=== PATIENT | male | born 1955 | race African-American/Black ===

== ENCOUNTER 2018-12-29 13:45 | Emergency (ER) | payer OTHER ==
[~2018-12-29] VITALS: Ht 180.3 cm; Wt 117.9 kg
[2018-12-29 14:42] LABS: CALCIUM 9.6 mg/dL (8.5-10.1); CREATININE 1.6 mg/dL (0.7-1.3); POTASSIUM 3.9 mmol/L (3.5-5.1)
[2018-12-29 14:45] LABS: URIC ACID* 5.9 mg/dL (2.6-7.2)
[2018-12-29] MEDS ORDERED: NORCO 5-325 TA1 EAC1 PO (14:50)
[2018-12-29] MEDS ORDERED: INDOMETHACIN 2525 MG PO (14:50)
[2018-12-29] MEDS ORDERED: COLCHICINE0.6 MG PO (14:50)
[2018-12-29 15:00] VITALS: BP 174/109
== END 2018-12-29 15:00 | disposition home or self-care (01) ==
LOC: ER 13:45
PROVIDERS: Physician Assistant
DX: M10.072 Idiopathic gout, left ankle and foot (principal); I10 Essential (primary) hypertension; E78.5 Hyperlipidemia, unspecified

== ENCOUNTER 2020-11-27 13:15 | Emergency (ER) | payer OTHER ==
[~2020-11-27] VITALS: Ht 180.3 cm; Wt 127.0 kg
[~2020-11-27 13:15] MED LIST: COLCHICINE0.6 MG PO; INDOMETHACIN 2525 MG PO; NORCO 5-325 TA1 EAC1 PO
[2020-11-27 13:31] VITALS: BP 156/53
[2020-11-27] MEDS ORDERED: LIPITOR 40 MG T40 M1 PO (13:38)
[2020-11-27 14:06] LABS: URINE BILIRUBIN NEGATIVE (Negative); URINE BLOOD TRACE (Negative); URINE CLARITY CLEAR; URINE COLOR YELLOW; URINE GLUCOSE-RANDOM* NEGATIVE (Negative); URINE KETONES NEGATIVE (Negative); URINE LEUKOCYTES-REFLEX NEGATIVE (Negative); URINE NITRITE-REFLEX NEGATIVE (Negative); URINE PROTEIN (DIPSTICK) NEGATIVE (Negative); URINE UROBILINOGEN 0.2 E.U./dl (0.2-1.0)
[2020-11-27 14:18] LABS: ABSOLUTE NEUTROPHILS 5.6 thou/uL (1.4-8.2); BASOPHILS 0.6 % (0.0-2.0); EOSINOPHILS 2.2 % (0.0-3.0); HEMOGLOBIN 12.7 gm/dL (14.0-18.0); MCH 28.8 pg (26.0-34.0); MCHC 32.6 g/dL (28.0-37.0); MCV 88.4 fL (80.0-100.0); PLATELET COUNT 229 thou/uL (150-400); POLYS 78.2 % (36.0-66.0); RBC 4.41 mil/uL (4.50-6.00); RDW 14.7 % (10.5-14.5); WBC 7.2 thou/uL (4.0-11.0)
[2020-11-27 14:26] LABS: CALCIUM 9.6 mg/dL (8.5-10.1); CREATININE 1.7 mg/dL (0.7-1.3); POTASSIUM 3.8 mmol/L (3.5-5.1)
[2020-11-27 14:32] LABS: ALBUMIN 3.7 g/dL (3.4-5.0); TOTAL BILIRUBIN 1.1 mg/dL (0.2-1.0); TOTAL PROTEIN 7.3 g/dL (6.4-8.2)
[2020-11-27] MEDS ORDERED: HYDROCODON-ACE1 EAC7 PO (16:03)
[2020-11-27 16:09] VITALS: BP 121/82
== END 2020-11-27 16:10 | disposition home or self-care (01) ==
LOC: ER 13:15 → EROBS 15:41 → ER 15:41
PROVIDERS: Emergency Medicine
DX: R10.30 Lower abdominal pain, unspecified (principal); R07.89 Other chest pain; M54.5 Low back pain; M25.562 Pain in left knee; M79.621 Pain in right upper arm; I10 Essential (primary) hypertension; E78.5 Hyperlipidemia, unspecified; Z96.652 Presence of left artificial knee joint; Z79.899 Other long term (current) drug therapy; V89.2XXA Person injured in unspecified motor-vehicle accident, traffic, initial encounter; Y93.I9 Activity, other involving external motion; Y92.488 Other paved roadways as the place of occurrence of the external cause; Y99.8 Other external cause status

== ENCOUNTER 2020-12-06 20:12 | Emergency (ER) | payer OTHER ==
[~2020-12-06] VITALS: Ht 180.3 cm; Wt 122.5 kg
[~2020-12-06 20:12] MED LIST changes: +HYDROCODON-ACE1 EAC7 PO; +LIPITOR 40 MG T40 M1 PO
[2020-12-06 20:51] LABS: ABSOLUTE NEUTROPHILS 3.5 thou/uL (1.4-8.2); BASOPHILS 0.7 % (0.0-2.0); EOSINOPHILS 4.5 % (0.0-3.0); HEMATOCRIT 36.6 % (42.0-52.0); LYMPHOCYTES 20.9 % (24.0-44.0); MCH 28.9 pg (26.0-34.0); MCHC 32.8 g/dL (28.0-37.0); MCV 88.1 fL (80.0-100.0); MONOCYTES 9.5 % (1.0-8.0); PLATELET COUNT 250 thou/uL (150-400); POLYS 64.4 % (36.0-66.0); RBC 4.15 mil/uL (4.50-6.00); RDW 14.3 % (10.5-14.5); WBC 5.4 thou/uL (4.0-11.0)
[2020-12-06 20:55] LABS: CALCIUM 9.1 mg/dL (8.5-10.1); CREATININE 2.4 mg/dL (0.7-1.3); POTASSIUM 3.6 mmol/L (3.5-5.1)
[2020-12-06 21:01] LABS: ALBUMIN 3.6 g/dL (3.4-5.0); TOTAL BILIRUBIN 1.3 mg/dL (0.2-1.0); TOTAL PROTEIN 7.6 g/dL (6.4-8.2)
[2020-12-06 22:47] VITALS: BP 115/75
--- NOTE | 2020-12-07 07:06 | EKG ---
[address] [place] [address] ELECTROCARDIOGRAM REPORT Name: GLENN LUUANNETTALaurent ELI Room #: [facility]P [facility] [id number] Admission: 12/06/20 Attend Phys: Discharge: 12/06/20 Date of : 51 Report #: [id number] [facility] ED Test Date: 2020-12-06 Test Time: 20:48:51 Pat Name: FAN LUU Department: Room: Gender: M Protocol Officer: anamaria : 1955 Requested By: Piyush Kitchen Order Number: [id number] MD: Hugo Cherry Measurements Intervals [place] Rate: 88 P: 56 ND: 205 QRS: 84 QRSD: 112 T: 56 QT: 380 QTc: 460 Interpretive Statements Sinus rhythm Atrial premature complexes Borderline intraventricular conduction delay Borderline T wave abnormalities Compared to ECG 11/06/2004 02:20:34 Atrial premature complex(es) now present Possible ischemia no longer present T-wave abnormality still present Electronically Signed On 12-07-2020 7:06:16 CDT by Hugo Cherry [email or web address] <ELECTRONICALLY SIGNED> By: Hugo Cherry MD, [facility] 12/07/2006 47 47 Hugo Cherry MD, [facility] /EPI
== END 2020-12-06 22:48 | disposition home or self-care (01) ==
LOC: ER 20:12
PROVIDERS: Emergency Medicine Emergency Medical Services
DX: M62.81 Muscle weakness (generalized) (principal); I10 Essential (primary) hypertension; E78.5 Hyperlipidemia, unspecified; Z79.899 Other long term (current) drug therapy